=== PATIENT | male | born 1975 | race Caucasian/White ===

== ENCOUNTER 2017-10-04 11:55 | Emergency (ER) | payer BC, OTHER ==
[~2017-10-04] VITALS: Ht 165.1 cm; Wt 66.8 kg
[~2017-10-04 11:55] MED LIST: TRAM50 PO
[2017-10-04 11:58] VITALS: BP 138/85; PULSE 92; RESP 16; TEMP 98; O2SAT 100
--- NOTE | 2017-10-04 13:44 | RADRPT ---
EXAM DATE: 10/04/2017 1:19 PM EDT AGE/SEX: 42 years / Male INDICATIONS: Fell back and hit head last night. Feels "foggy" since. CLINICAL DATA: This is the patient's initial encounter. Patient reports that signs and symptoms have been present for 2 days and indicates a pain score of 7/10. MEDICAL/SURGICAL HISTORY: None. None. RADIATION DOSE: 59.23 CTDI (mGy) COMPARISON: No prior exams available for comparison. TECHNIQUE: CT of the head without contrast. Using automated exposure control and adjustment of the mA and/or kV according to patient size, radiation dose was kept as low as reasonably achievable to ob tain optimal diagnostic quality images. FINDINGS: Cerebrum: The ventricles are normal for age. No evidence of midline shift, mass lesion, hemorrhage or acute infarction. No extraaxial fluid collections are seen. Posterior Fossa: The cerebellum and brainstem are intact. The 4th ventricle is midline. The cerebe llopontine angle is unremarkable. Extracranial: The visualized portion of the orbits is intact. Skull: The calvaria is intact. No evidence of skull fracture. CONCLUSION: 1. Negative for acute process. Electronically signed by: Ketan Siddiqui MD 10/04/2017 1:43 PM EDT
--- NOTE | 2017-10-04 13:47 | RADRPT ---
EXAM DATE: 10/04/2017 1:26 PM EDT AGE/SEX: 42 years / Male INDICATIONS: Fell back and hit head last night. Neck pain. CLINICAL DATA: This is the patient's initial encounter. Patient reports that signs and symptoms have been present for 2 days and indicates a pain score of 6/10. MEDICAL/SURGICAL HISTORY: None. None. RADIATION DOSE: 25.07 CTDI (mGy) COMPARISON: No prior exams available for comparison. TECHNIQUE: Contiguous axial images were obtained using helical multirow detector technique. The vol umetric data was post-processed with multiplanar reconstruction in oblique axial, sagittal, and coron al planes. Using automated exposure control and adjustment of the mA and/or kV according to patient s ize, radiation dose was kept as low as reasonably achievable to obtain optimal diagnostic quality klaus ges. FINDINGS: Vertebrae: Normal vertebral body height. Alignment: Straightening of the normal cervical lordosis C2-3: The bony spinal canal is normal in size. No evidence of disc bulge or herniation. The neural foramina are bilaterally patent. C3-4: The bony spinal canal is normal in size. No evidence of disc bulge or herniation. The neural foramina are bilaterally patent. C4-5: The bony spinal canal is normal in size. No evidence of disc bulge or herniation. The neural foramina are bilaterally patent. C5-6: Mild uncinate ridging with minimal disc bulging and bilateral neural foraminal encroachment. C6-7: The bony spinal canal is normal in size. No evidence of disc bulge or herniation. The neural foramina are bilaterally patent. C7-T1: The bony spinal canal is normal in size. No evidence of disc bulge or herniation. The neura l foramina are bilaterally patent. CONCLUSION: 1. Mild degenerative changes at C5-C6 without spinal stenosis. 2. Reversal normal cervical lordosis. 3. No fracture Electronically signed by: Ketan Siddiqui MD 10/04/2017 1:46 PM EDT
[2017-10-04] MEDS ORDERED: ROBA500T PO (14:06)
--- NOTE | 2017-10-04 14:06 | PD ---
HPI Chief Complaint: Head Injury Time Seen by Provider: 12:32 Travel History International Travel<30 days: No Contact w/Intl Traveler<30days: No Traveled to known affect area: No History of Present Illness HPI 42-year-old male with head and neck pain after he fell from a standing position 2 days ago. Patient reports while heavily drinking he fell from a standing position hitting his head. It was reported he had loss of consciousness. He was evaluated by paramedics at the time refused medical attention. Since the event he has had a mild generalized headache and feels slightly fatigued. He also has posterior neck pain. Denies altered sensation or weakness of the extremities. Symptom severity is mild. Neck pain is aggravated by movement and relieved with rest. PFSH Past Medical History Medical History: Denies Significant Hx ?: Not Social History Alcohol Use: Yes (OCC) Tobacco Use: No Allergies-Medications (Allergen,Severity, Reaction): Coded Allergies: No Known Allergies (Verified Adverse Reaction, Unknown, 10/04/17) Reported Meds & Prescriptions Reported Meds & Active Scripts Active No Active Prescriptions or Reported Medications Review of Systems Except as stated in HPI: all other systems reviewed are Neg General / Constitutional: No: Fever Eyes: No: Visual changes HENT: No: Headaches Cardiovascular: No: Chest Pain or Discomfort Respiratory: No: Shortness of Breath Gastrointestinal: No: Abdominal Pain Genitourinary: No: Dysuria Musculoskeletal: No: Pain Physical Exam Narrative GENERAL: Alert and well-appearing 42-year-old male. SKIN: Warm and dry. HEAD: Normocephalic. Atraumatic EYES: Pupils equal, round, reactive to light. EOMs intact. No injection or drainage. NECK: Supple, trachea midline. Mild posterior neck pain including tenderness of the midline spine. Primary tenderness is over the left trapezius muscle. He can freely move the neck. CARDIOVASCULAR: Regular rate and rhythm without murmurs, gallops, or rubs. RESPIRATORY: Breath sounds equal bilaterally. No accessory muscle use. GASTROINTESTINAL: Abdomen soft, non-tender, nondistended. MUSCULOSKELETAL: No cyanosis, or edema. Normal strength and sensation of the extremities. BACK: Nontender without obvious deformity. No CVA tenderness. NEUROLOGICAL: Awake and alert. No obvious cranial nerve deficit. Motor and sensory grossly within normal limits. Five out of 5 muscle strength in all muscle groups. Normal speech. Data Data Last Documented VS Vital Signs Date Time Temp Pulse Resp B/P (MAP) Pulse Ox O2 Delivery O2 Flow Rate FiO2 10/04/17 11:58 98.0 92 16 138/85 (102) [address] Brain W/O Iv Contrast(Rout) (10/04/17 ) Ct Cerv Spine W/O Contrast (10/04/17 ) MDM Medical Decision Making Medical Screen Exam Complete: Yes Emergency Medical Condition: Yes Differential Diagnosis Concussion, cervical strain, cervical spine fracture, ICH Narrative Course 22-year-old male here for evaluation of neck pain after he fell from standing position 2 days ago. He has a normal neurologic exam. CT the brain and cervical spine are negative for acute abnormalities. He is well-appearing. Exam is consistent with mild concussion and cervical strain. He is stable and ready for discharge. Diagnosis Primary Impression: Concussion Qualified Codes: S06.0X9A - Concussion with loss of consciousness of unspecified duration, initial encounter Additional Impression: Cervical strain Qualified Codes: S16.1XXA - Strain of muscle, fascia and tendon at neck level , initial encounter Referrals: Primary Care Physician Additional Instructions: Medication as directed. Ice and/or heat for muscle spasm Follow-up with your primary doctor. Scripts Methocarbamol (Robaxin) 500 Mg Tab 500 MG PO TID for Muscle Spasm, #10 TAB 0 Refills Prov: Catherine Gray 10/04/17 Disposition: 01 DISCHARGE HOME Condition: Stable Catherine Gray Oct 04, 2017 14:06
== END 2017-10-04 14:10 | disposition home or self-care (01) ==
LOC: PHEFT 11:55
DX: S06.0X9A Concussion with loss of consciousness of unspecified duration, initial encounter (principal); S16.1XXA Strain of muscle, fascia and tendon at neck level, initial encounter; M54.2 Cervicalgia; R51 Headache; W19.XXXA Unspecified fall, initial encounter
CPT/HCPCS: 70450; 72125; 99283